=== PATIENT | female | born 1960 | race Two or more races ===

== ENCOUNTER → 2024-03-14 | Outpatient (CLI) | payer MEDICAID, SELFPAY ==
--- NOTE | 2024-03-14 13:00 | XR_ITS ---
Examination: Bone scan whole body, radioisotope Date and time of exam: March 14, 2024 1324 hours INDICATIONS: Diagnosis left breast cancer January 2024, malignant neoplasm lower inner quadrant left female breast, staging Technique: Study has been performed with intravenous administration of 23.5 mci 99M technetium MDP. Anterior, posterior whole body images are obtained. Images have been obtained including the lower extremities. Findings: Minor asymmetric uptake about the knees IMPRESSION: No findings diagnostic for osseous metastatic disease
== END | disposition home or self-care (01) ==
PROVIDERS: PCP Family Medicine; Referring Provider Internal Medicine Hematology & Oncology; Visit Provider Internal Medicine Hematology & Oncology
DX: C50.312 Malignant neoplasm of lower-inner quadrant of left female breast (principal)
CPT/HCPCS: 78306; A9503

== ENCOUNTER → 2024-04-12 | Outpatient (CLI) | payer MEDICAID, SELFPAY ==
[2024-04-12 10:23] LABS: Basophils # (Auto) 0.1 Thou/mm3 (0.0-0.2); Basophils % (Auto) 2 % (0-2.5); Eosinophils # (Auto) 0.2 Thou/mm3 (0.0-0.5); Eosinophils % (Auto) 2 % (0-10); Hematocrit 34.7 % (36.0-46.0); Hemoglobin 12.6 g/dL (12.0-16.0); Immature Granulocytes % (Auto) 6 % (0-0); Immature Granulocytes Auto 0.38 Thou/mm3 (0.00-0.00); Lymphocytes # (Auto) 1.3 Thou/mm3 (1.0-4.8); Lymphocytes % (Auto) 18 % (10-50); Mean Corpuscular HGB Conc 36.3 g/dl (31.0-37.0); Mean Corpuscular Hemoglobin 32.8 pg (25.0-35.0); Mean Corpuscular Volume 90 fL (80-100); Monocytes # (Auto) 0.7 Thou/mm3 (0.0-0.8); Monocytes % (Auto) 10 % (0-12); Neutrophils # (Auto) 4.3 Thou/mm3 (1.8-7.7); Neutrophils % (Auto) 62 % (37-80); Nucleated Red Blood Cell % 0 /100 WBC (0); Platelet Count 243 Thou/mm3 (140-440); RDW Standard Deviation 36.1 fL (36.4-46.3); Red Blood Count 3.84 Miln/mm3 (4.00-5.20); White Blood Count 6.9 Thou/mm3 (3.6-11.0)
[2024-04-12 11:02] LABS: Alanine Aminotransferase 57 U/L (10-49); Albumin, Serum 4.4 gm/dL (3.4-4.8); Albumin/Globulin Ratio 1.8 (1.2-2.2); Alkaline Phosphatase 92 U/L (46-116); Anion Gap 10 (7-16); Aspartate Amino Transferase 58 U/L (0-34); BUN/Creatinine Ratio 17 Ratio (12-20); Bilirubin,Total 0.3 mg/dL (0.3-1.2); Blood Urea Nitrogen 12 mg/dL (9-23); Calcium 9.3 mg/dL (8.3-10.6); Calcium (Corrected) 9.3 mg/dL (8.5-10.1); Chloride 101 mMol/L (98-107); Creatinine (Component) 0.7 mg/dL (0.6-1.3); Globulin 2.4 gm/dL (2.3-3.5); Glucose 147 mg/dL (74-106); Osmolality,Calculated 274 (275-295); Potassium 4.3 mMol/L (3.4-5.1); Sodium 136 mMol/L (136-145); Total Protein 6.8 gm/dL (5.7-8.2); eGFR > 60 See Note
[2024-04-12 11:17] LABS: CA 15-3 173.3 U/mL (<32.4)
== END | disposition home or self-care (01) ==
LOC: COPL 09:15
PROVIDERS: PCP Family Medicine; Referring Provider Internal Medicine Hematology & Oncology; Visit Provider Internal Medicine Hematology & Oncology
DX: C50.312 Malignant neoplasm of lower-inner quadrant of left female breast (principal)
CPT/HCPCS: 36415; 80053; 85025; 86300

== ENCOUNTER → 2024-04-24 | Outpatient (CLI) | payer MEDICAID, SELFPAY ==
--- NOTE | 2024-04-24 14:30 | ECHO_ITS ---
Transthoracic Echo Report Ht (in): 64 Wt (lb): 162 Exam Location: Echo Lab Status: Preadmit [employer] Patrol: Hazel Handy Indications: Procedure Performed: BP: / HR: Rhythm: Tachycardia Technical Quality: Fair MEASUREMENTS (Male / Female) Normal Values 2D ECHO LV Diastolic Diameter PLAX 3.1 cm 4.2 - 5.9 / 3.9 - 5.3 cm LV Systolic Diameter PLAX 1.9 cm IVS Diastolic Thickness 0.8 cm 0.6 - 1.0 / 0.6 - 0.9 cm LVPW Diastolic Thickness 0.8 cm 0.6 - 1.0 / 0.6 - 0.9 cm LV Relative Wall Thickness 0.5 LVOT Diameter 1.5 cm LA Volume Index 11.2 cm?/m? 16 - 28 cm?/m? Ascending Aorta Diameter 2.6 cm M-MODE Aortic Root Diameter MM 2.5 cm LA Systolic Diameter MM 3.4 cm LA Ao Ratio MM 1.4 AV Cusp Separation MM 1.4 cm DOPPLER AV Peak Velocity 161.0 cm/s AV Peak Gradient 10.4 mmHg AV Mean Gradient 4.0 mmHg AV Velocity Time Integral 21.1 cm LVOT Peak Velocity 158.0 cm/s LVOT Peak Gradient 10.0 mmHg LVOT Velocity Time Integral 30.4 cm AV Area Cont Eq vti 2.5 cm? AV Area Cont Eq pk 1.7 cm? MV Peak Velocity 129.0 cm/s MV Peak Gradient 6.7 mmHg MV Mean Velocity 74.9 cm/s MV Mean Gradient 3.0 mmHg MV Area PHT 6.1 cm? Mitral E Point Velocity 66.5 cm/s Mitral A Point Velocity 114.0 cm/s Mitral E to A Ratio 0.6 LV E' Lateral Velocity 10.9 cm/s Mitral E to LV E' Lateral Ratio 6.1 LV E' Septal Velocity 6.9 cm/s Mitral E to LV E' Septal Ratio 9.7 FINDINGS Left Ventricle Normal left ventricular size, wall thickness, systolic function with no obvious regional wall motion abnormalities. The ejection fraction is visually estimated at 65-70%. Right Ventricle The right ventricle is normal in size and systolic function. Left Atrium The left atrium is normal by two-dimensional, color flow and Doppler imaging with no structural abnormalities, no thrombus formation present. Right Atrium The right atrium is normal by two-dimensional imaging, color flow and Doppler imaging with no struct ural abnormalities, no thrombus formation present. Atrial Septum The interatrial septum appears normal with no evidence of a shunt. Aorta The aorta is normal by two-dimensional, color flow and Doppler interrogation. Mitral Valve The mitral valve is normal by two-dimensional, color flow and Doppler interrogation. There is no sig nificant mitral valve regurgitation. Aortic Valve The aortic valve is trileaflet and normal by two-dimensional, color flow and Doppler interrogation. There is no significant aortic valve regurgitation. Tricuspid Valve The tricuspid valve is normal by two-dimensional, color flow and Doppler interrogation. There is tra ce tricuspid valve regurgitation. Pulmonic Valve The pulmonic valve is normal by two-dimensional, color flow and Doppler interrogation. There is no significant pulmonic valve regurgitation. Vessels The pulmonary artery appears normal. The inferior vena cava pulmonary and hepatic veins appear carmela l. Pericardium The pericardium is normal by two-dimensional imaging. There is no significant pericardial effusion. CONCLUSIONS Normal LV size and function. Estimated EF 65-70% Normal RV size and function Trace TR. Lulu Osuna (Electronically Signed) Final Date: 25 April 2024 12:18
== END | disposition home or self-care (01) ==
LOC: SDIM 14:17
PROVIDERS: Referring Provider Internal Medicine Hematology & Oncology; Visit Provider Internal Medicine Hematology & Oncology
DX: I07.1 Rheumatic tricuspid insufficiency (principal); Z01.818 Encounter for other preprocedural examination; C50.312 Malignant neoplasm of lower-inner quadrant of left female breast
CPT/HCPCS: 93306

== ENCOUNTER → 2024-06-21 | Outpatient (CLI) | payer MEDICAID, SELFPAY ==
[2024-06-21 11:21] LABS: Basophils % (Auto) 1 % (0-2.5); Eosinophils % (Auto) 2 % (0-10); Hematocrit 28.2 % (36.0-46.0); Hemoglobin 9.6 g/dL (12.0-16.0); Immature Granulocytes % (Auto) 0 % (0-0); Immature Granulocytes Auto 0.01 Thou/mm3 (0.00-0.00); Lymphocytes # (Auto) 0.6 Thou/mm3 (1.0-4.8); Lymphocytes % (Auto) 22 % (10-50); Mean Corpuscular Hemoglobin 33.6 pg (25.0-35.0); Mean Corpuscular Volume 99 fL (80-100); Monocytes # (Auto) 0.1 Thou/mm3 (0.0-0.8); Monocytes % (Auto) 4 % (0-12); Neutrophils # (Auto) 1.8 Thou/mm3 (1.8-7.7); Neutrophils % (Auto) 71 % (37-80); Nucleated Red Blood Cell % 0 /100 WBC (0); Platelet Count 225 Thou/mm3 (140-440); RDW Standard Deviation 53.9 fL (36.4-46.3); Red Blood Count 2.86 Miln/mm3 (4.00-5.20)
[2024-06-21 11:40] LABS: Alanine Aminotransferase 28 U/L (10-49); Albumin/Globulin Ratio 1.9 (1.2-2.2); Alkaline Phosphatase 61 U/L (46-116); Anion Gap 12 (7-16); Aspartate Amino Transferase 19 U/L (0-34); BUN/Creatinine Ratio 26 Ratio (12-20); Bilirubin,Total 1.2 mg/dL (0.3-1.2); Blood Urea Nitrogen 13 mg/dL (9-23); Calcium 9.1 mg/dL (8.3-10.6); Calcium (Corrected) 9.1 mg/dL (8.5-10.1); Carbon Dioxide 23.3 mMol/L (20.0-31.0); Chloride 105 mMol/L (98-107); Creatinine (Component) 0.5 mg/dL (0.6-1.3); Globulin 2.1 gm/dL (2.3-3.5); Glucose 186 mg/dL (74-106); Osmolality,Calculated 284 (275-295); Potassium 3.7 mMol/L (3.4-5.1); Sodium 140 mMol/L (136-145); Total Protein 6.1 gm/dL (5.7-8.2); White Blood Count 2.5 Thou/mm3 (3.6-11.0); eGFR > 60 See Note
== END | disposition home or self-care (01) ==
PROVIDERS: PCP Family Medicine; Referring Provider Internal Medicine Hematology & Oncology; Visit Provider Internal Medicine Hematology & Oncology
DX: C50.312 Malignant neoplasm of lower-inner quadrant of left female breast (principal)
CPT/HCPCS: 36415; 80053; 85025

== ENCOUNTER → 2024-06-28 | Outpatient (CLI) | payer MEDICAID, SELFPAY ==
[2024-06-28 14:07] LABS: Basophils % (Auto) 1 % (0-2.5); Eosinophils # (Auto) 0.2 Thou/mm3 (0.0-0.5); Eosinophils % (Auto) 7 % (0-10); Hematocrit 26.6 % (36.0-46.0); Hemoglobin 9.3 g/dL (12.0-16.0); Immature Granulocytes % (Auto) 0 % (0-0); Immature Granulocytes Auto 0.01 Thou/mm3 (0.00-0.00); Lymphocytes # (Auto) 0.8 Thou/mm3 (1.0-4.8); Lymphocytes % (Auto) 26 % (10-50); Mean Corpuscular Hemoglobin 34.1 pg (25.0-35.0); Mean Corpuscular Volume 97 fL (80-100); Monocytes # (Auto) 0.1 Thou/mm3 (0.0-0.8); Monocytes % (Auto) 4 % (0-12); Neutrophils # (Auto) 1.9 Thou/mm3 (1.8-7.7); Neutrophils % (Auto) 62 % (37-80); Nucleated Red Blood Cell % 0 /100 WBC (0); Platelet Count 222 Thou/mm3 (140-440); Red Blood Count 2.73 Miln/mm3 (4.00-5.20)
[2024-06-28 14:23] LABS: Alanine Aminotransferase 31 U/L (10-49); Albumin, Serum 4.2 gm/dL (3.4-4.8); Albumin/Globulin Ratio 1.9 (1.2-2.2); Alkaline Phosphatase 62 U/L (46-116); Anion Gap 11 (7-16); Aspartate Amino Transferase 31 U/L (0-34); BUN/Creatinine Ratio 15 Ratio (12-20); Bilirubin,Total 1.1 mg/dL (0.3-1.2); Blood Urea Nitrogen 9 mg/dL (9-23); Calcium 9.3 mg/dL (8.3-10.6); Calcium (Corrected) 9.3 mg/dL (8.5-10.1); Carbon Dioxide 25.2 mMol/L (20.0-31.0); Chloride 102 mMol/L (98-107); Creatinine (Component) 0.6 mg/dL (0.6-1.3); Globulin 2.2 gm/dL (2.3-3.5); Glucose 176 mg/dL (74-106); Osmolality,Calculated 278 (275-295); Potassium 3.8 mMol/L (3.4-5.1); Sodium 138 mMol/L (136-145); Total Protein 6.4 gm/dL (5.7-8.2); eGFR > 60 See Note
== END | disposition home or self-care (01) ==
LOC: COPL 12:31
PROVIDERS: PCP Internal Medicine Hematology & Oncology; Referring Provider Internal Medicine Hematology & Oncology; Visit Provider Internal Medicine Hematology & Oncology
DX: C50.312 Malignant neoplasm of lower-inner quadrant of left female breast (principal)
CPT/HCPCS: 36415; 80053; 85025

== ENCOUNTER 2024-10-31 10:48 | Outpatient (RCR) | payer MEDICAID, SELFPAY ==
--- NOTE | 2024-10-24 12:11 | CTCCONSULT_ITS ---
[facility] [address] [place], [place] [address] Consultation Note Date: 10/24/2024 MR#: [id number] Name: TONNY QUEVEDO : 1960 Dx: Left breast CA upper inner quadrant C50.212 Referring physician. Froylan Curran MD Reason for consultation. Patient with T3 N3 M1 status post neoadjuvant chemo surgery postop radiation therapy recommended. History of Present Illness: Patient is an unfortunate 63-year-old lady who felt mass in the left breast August 2023 upper inner area which she grew rapidly involving the left axilla. Eventual biopsy done in January revealed invasive lobular carcinoma in both left axilla and breast. PET scan 04-02 revealed large 5 cm irregular hypermetabolic left breast mass along with left posterior cervical left medial and left lateral subpectoral and left axillary awais mets. MRI revealed left supraclavicular axillary and subpectoral lymph nodes. CA 15-3 246 patient underwent neoadjuvant AC dose dense x 4 and weekly Taxol x 12 chemo completed 08/20/2024. Underwent left breast modified radical mastectomy performed by Dr. Curran 09/23/2024. Final path 18 benign left axillary lymph nodes with residual 3 and 4 mm focus of metastatic lobular carcinoma and sclerotic and 3 centimeter left ax lymph node confirmed by immuno histochemistry. There was extensive sclerosis multiple benign calcified fibroadenomas and benign papular lesions. ER/TN negative Ki-67 20% margins were negative for invasive carcinoma.[id number]. Patient now referred for postop radiation therapy. Past Medical History: Hypertension asthma Medications vitamin D prednisone 20 mg Allergies to penicillin Family history. 1 aunt had breast cancer Social History: Patient used to work in [employer] house [place]-speaking Review of Systems: Physical Exam: General: Adequately nourished no acute distress HEENT: No oral lesions no cervical or supraclavicular apathy CV: Chest with auscultation irregular regular rhythm left breast surgically absent no sign of recurrence ABD: Soft organomegaly or tenderness EXT: No signs of clubbing or edema Assessment: 1. Patient with T3 N3 M1 stage IV left breast CA receptor positive HER2/timi negative left breast CA. PET showed extensive left posterior cervical met subpectoral and axillary mets left supra clavicle mets. 2. Completed neoadjuvant AC dose dense and Taxol chemo 08/20/2024 Dr. Bustamante. 3. Modified radical mastectomy Dr. Curran 09/23/2024 [id number]. 4. Postop chest wall and regional node bearing sites which will include the supra clavicle regions. 4500 to 5000 cGy plus E boost. 5. Side effects discussed. Consent signed. Thank very much for allowing to evaluate and manage this patient. Cc: MD Froylan Ramirez MD Electronically signed by: Bryan Castro MD, DABR 10/24/2024 12:09 PM
--- NOTE | 2024-10-24 12:13 | CTCTXPLN_ITS ---
[facility] [address] [place], [place] [address] Physician Clinical Treatment Planning Note Date of Service: 10/24/2024 Name: TONNY QUEVEDO : 1960 The patient has agreed to proceed with Radiation therapy. Tests and supporting medical records were interpreted to assist in defining the tumor location and extent of disease. Further imaging will be necessary to contour and delineate the volume to which the XRT will be provided. A. Treatment Intent: Curative B. Modality: 6 MV C. Requested Technique: 3D D. Treatment Site: Left chest wall supra Wolbach axilla E. Critical structures to be contoured on plan: F. In order to accomplish this plan, I am ordering/Prescribing the followin. Simulations (s) will be performed to accomplish a reproducible treatment position, to determine optimal treatment portals/beam arrangements, to design beam modifying devices and verify treatment portals on patient prior to the commencement of Radiation Therapy. Left chest wall 2. Devices; for immobilization and beam shaping: Vac-True 3. CT Guidance for placement of XRT savage Scan area: 4. Portal images Frequency: 5. Invivo transit dose measurement once per week on all VMAT patients. 6. Special Physics Consult Requested for: 7. Other requests: Special procedure chemoradiation G. Dose Objectives: Curative Electronically signed by: Bryan Castro M.D. 10/24/2024 12:10 PM
--- NOTE | 2024-10-24 12:16 | CTCTXPLNST_ITS ---
Radiation Oncology Treatment Planning Sheet Name: TONNY QUEVEDO MR#: [id number] : 1960 Dx: C50.212 Malignant neoplasm of upper-inner quadrant of left female breast Date of Service: 10/24/2024 Account #: ?? Pt Treatment Intent: curative palliative other: Stage: Procedure CPT # Ordered Spec. Procedure 73086 1 Chamberlain Complex (set-up) 98305 Left chest wall/E boost 1 Chamberlain Simple 28159 1 IMRT Plan 08811 MLC Devices VMAT 23761 Chamberlain 3 D 95841 1 TRTMT dev Complex 96929 Vac-True/2 tangents/supra Cliff neck/PAB/E boost 6 TRTMT dev simple 91426 3 mm bolus 1 Basic Miles 19835 7 Special Dosimetry 59407 Spec Physics 12243 Port Films 19446 5 SRS Cranial/1FX 55293 SBR 5 FX or Less /ex: 5 = 5 fx 48797 IMRT Simple 19527 IMRT Complex 23862 IGRT 52105 Rad del com 6-10 96180 Rad del com 11- 90427 6.300 35 Cont Med Physics 02116 7 Treatment Planning 33294 1. Rad del com 20 mev 62612 Rad del inter 6 58843 Rad del inter 02-26 39885 Rad del simple 6-10 28874 Rad del simple 02-26 25417 Special Port Plan 58342 TRTMT dev inter 78775 Isodose Complex 56760 Isodose simple 85812 Resp Motion Mgmt Simulation 75117 Placement of Fiducial Markers 74456 Electronically Signed By: Bryan Castro MD, VAISHALIR 10/24/2024 12:14 PM
== END 2024-11-07 23:59 | disposition home or self-care (01) ==
LOC: SCTC 10:48
PROVIDERS: PCP Family Medicine; Referring Provider Surgery; Visit Provider Radiology Therapeutic Radiology
DX: Z51.0 Encounter for antineoplastic radiation therapy (principal); C50.212 Malignant neoplasm of upper-inner quadrant of left female breast; C77.3 Secondary and unspecified malignant neoplasm of axilla and upper limb lymph nodes; C77.0 Secondary and unspecified malignant neoplasm of lymph nodes of head, face and neck; Z17.0 Estrogen receptor positive status [ER+]; Z17.21 Progesterone receptor positive status; Z17.32 Human epidermal growth factor receptor 2 negative status; Z90.12 Acquired absence of left breast and nipple; Z80.3 Family history of malignant neoplasm of breast
CPT/HCPCS: 77014; 77290; 77295; 77300; 77334; 77470; 99203; G0463

== ENCOUNTER 2024-12-06 10:11 | Outpatient (RCR) | payer MEDICAID, SELFPAY ==
--- NOTE | 2024-11-11 15:29 | CTCSNOTE_ITS ---
[facility] [address] [place], [place] [address] Simple Simulation Note Date: 11/11/2024 MR#: [id number] Name: TONNY QUEVEDO : 1960 Port was taken and the field size location and blocks were checked. (A) The port was noted to be in ideal position along with its blocks Electronically signed by: Bryan Castro MD, VAISHALIR 11/11/2024 3:27 PM
== END 2024-12-08 23:59 | disposition home or self-care (01) ==
LOC: SCTC 10:11
PROVIDERS: PCP Family Medicine; Referring Provider Family Medicine; Visit Provider Radiology Therapeutic Radiology
DX: Z51.0 Encounter for antineoplastic radiation therapy (principal); C50.212 Malignant neoplasm of upper-inner quadrant of left female breast; C77.0 Secondary and unspecified malignant neoplasm of lymph nodes of head, face and neck; C77.3 Secondary and unspecified malignant neoplasm of axilla and upper limb lymph nodes; Z17.0 Estrogen receptor positive status [ER+]; Z17.21 Progesterone receptor positive status; Z17.32 Human epidermal growth factor receptor 2 negative status; Z90.12 Acquired absence of left breast and nipple
CPT/HCPCS: 77280; 77336; 77412; 77417

== ENCOUNTER 2025-01-07 14:14 | Outpatient (RCR) | payer MEDICAID, SELFPAY | END 2025-01-07 23:59 | disposition home or self-care (01) | LOC: SCTC 14:14 | PROVIDERS: PCP Family Medicine; Referring Provider Family Medicine; Visit Provider Radiology Therapeutic Radiology | DX: Z51.0 Encounter for antineoplastic radiation therapy (principal); C50.212 Malignant neoplasm of upper-inner quadrant of left female breast; Z17.0 Estrogen receptor positive status [ER+]; Z17.21 Progesterone receptor positive status; Z17.32 Human epidermal growth factor receptor 2 negative status; Z90.12 Acquired absence of left breast and nipple; L59.8 Other specified disorders of the skin and subcutaneous tissue related to radiation; Y84.2 Radiological procedure and radiotherapy as the cause of abnormal reaction of the patient, or of later complication, without mention of misadventure at the time of the procedure | CPT/HCPCS: 77290; 77300; 77332; 77336; 77412; 77417 ==

== ENCOUNTER 2025-01-28 13:16 | Outpatient (RCR) | payer MEDICAID, SELFPAY | END 2025-02-07 23:59 | disposition home or self-care (01) | LOC: SCTC 13:16 | PROVIDERS: PCP Family Medicine; Referring Provider Family Medicine; Visit Provider Radiology Therapeutic Radiology | DX: Z51.0 Encounter for antineoplastic radiation therapy (principal); C50.212 Malignant neoplasm of upper-inner quadrant of left female breast; Z17.0 Estrogen receptor positive status [ER+]; Z17.32 Human epidermal growth factor receptor 2 negative status; Z17.22 Progesterone receptor negative status; L59.9 Disorder of the skin and subcutaneous tissue related to radiation, unspecified; Y84.2 Radiological procedure and radiotherapy as the cause of abnormal reaction of the patient, or of later complication, without mention of misadventure at the time of the procedure | CPT/HCPCS: 77336; 77412; 99212; G0463 ==